=== PATIENT | female | born 1945 | race Caucasian/White ===

== ENCOUNTER 2021-03-05 13:51 | Inpatient (IN) | payer MEDICARE ==
[2021-03-05 14:28] LABS: #Basophils 0.1 10x3/uL (0.0-0.2); #Monocytes 0.6 10x3/uL (0.0-1.1); #Neutrophils 4.6 10x3/uL (1.5-8.4); %Basophils 0.8 % (0.0-2.0); %Eosinophils 0.5 % (0.0-6.0); %Lymphocytes 19.8 % (18.0-47.0); %Monocytes 9.5 % (0.0-10.0); %Neutrophils 69.1 % (40.0-75.0); Hemoglobin 12.1 g/dL (12.0-15.5); Mean Corpuscular HGB CONC 33.2 g/dL (32.0-36.0); Mean Corpuscular Volume 90.3 fl (81.6-98.3); Mean Platelet Volume 10.7 fl (7.4-10.4); Platelet Count 303 10x3/uL (150-450); RBC Distribution Width 15.1 % (11.5-14.5); Red Blood Cell (RBC) Count 4.04 10x6/uL (3.90-5.03); White Blood Cell (WBC) Count 6.6 10x3/uL (3.5-10.5)
[2021-03-05 14:33] LABS: ALT (SGPT) 104 U/L (8-55); AST (SGOT) 64 U/L (5-34); Albumin 3.8 g/dL (3.4-4.8); Alkaline Phosphatase 126 U/L (40-110); Anion Gap 15 mmol/L (10-20); BUN (Urea Nitrogen) 18 mg/dL (9.8-20.1); Bilirubin, Total 0.5 mg/dL (0.2-1.2); Calc. Creatinine Clearance 0 mL/min (70-130); Calcium 8.8 mg/dL (7.8-10.44); Carbon Dioxide 26 mmol/L (23-31); Chloride 99 mmol/L (98-107); Globulin 2.5 g/dL (2.4-3.5); Glucose 129 mg/dL (83-110); Potassium 4.1 mmol/L (3.5-5.1); Protein, Total 6.3 g/dL (5.8-8.1); Sodium 136 mmol/L (136-145)
[2021-03-05 15:24] LABS: Bilirubin Neg (Negative); Blood, Urine 50 (Negative); Clarity Clear (Clear); Glucose, Urine (Dipstick) Normal (Negative); Ketone, Urine Negative (Negative); Leukocyte 100 (Negative); Nitrite Negative (Negative); Protein, Urine (Dipstick) 30 mg/dl (Neg-Trace); Specific Gravity, Urine 1.015 (1.002-1.036)
[2021-03-05] MEDS ORDERED: Diltiazem HCl 125 MG, Admixture Fee 1 EACH in Sodium Chloride 0.9% 100 ML IVPB SCH (15:30)
[2021-03-05 15:37] LABS: Bacteria/HPF 1+ HPF (None Seen); RBC/HPF 0-3 HPF (0-3); Squamous Epithelial 0-3 HPF (0-3)
[2021-03-05] MEDS ORDERED: cefTRIAXone\\ROCEPHIN 1 GM VIAL ONE (16:04)
[2021-03-05] MEDS ORDERED: Acetaminophen 650 MG Suppository PR PRN (16:09)
[2021-03-05] MEDS ORDERED: Metoprolol Tartrate 25 MG TAB PO SCH (16:15)
[2021-03-05 16:59] LABS: SARS-CoV-2 NAA Rapid Test Not Detected (NotDetected)
[2021-03-05 17:55] LABS: Magnesium 1.9 mg/dL (1.6-2.6)
[2021-03-05] MEDS ORDERED: Furosemide 20 MG/2 ML VIAL SLOW IVP SCH (20:15)
[2021-03-05] MEDS ORDERED: Magnesium 2 GM/50 ML 2 GM in Premix Bag 1 BAG IVPB SCH (20:15)
[2021-03-05] MEDS ORDERED: Metoprolol Tartrate 50 MG TAB PO SCH (21:00)
[2021-03-05] MEDS: Atorvastatin Calcium 40 MG TAB PO SCH ×2 (21:03→21:06)
[2021-03-05] MEDS: Apixaban 5 MG TAB PO SCH (21:03)
[2021-03-05 21:34] VITALS: BMI 22.4
[2021-03-06 05:00] LABS: #Basophils 0.1 10x3/uL (0.0-0.2); #Eosinphils 0.1 10x3/uL (0.0-0.5); #Monocytes 0.6 10x3/uL (0.0-1.1); #Neutrophils 3.5 10x3/uL (1.5-8.4); %Basophils 0.9 % (0.0-2.0); %Eosinophils 1.1 % (0.0-6.0); %Monocytes 11.7 % (0.0-10.0); %Neutrophils 63.1 % (40.0-75.0); Hemoglobin 10.7 g/dL (12.0-15.5); Mean Corpuscular HGB CONC 32.1 g/dL (32.0-36.0); Mean Corpuscular Volume 90.2 fl (81.6-98.3); Mean Platelet Volume 10.7 fl (7.4-10.4); Platelet Count 260 10x3/uL (150-450); RBC Distribution Width 14.9 % (11.5-14.5); Red Blood Cell (RBC) Count 3.69 10x6/uL (3.90-5.03); White Blood Cell (WBC) Count 5.5 10x3/uL (3.5-10.5)
[2021-03-06 05:09] LABS: ALT (SGPT) 81 U/L (8-55); AST (SGOT) 48 U/L (5-34); Albumin 3.2 g/dL (3.4-4.8); Alkaline Phosphatase 100 U/L (40-110); Bilirubin, Direct 0.2 mg/dL (0.1-0.3); Bilirubin, Total 0.6 mg/dL (0.2-1.2); Protein, Total 5.8 g/dL (5.8-8.1)
[2021-03-06 05:16] LABS: Anion Gap 13 mmol/L (10-20); BUN (Urea Nitrogen) 15 mg/dL (9.8-20.1); Calc. Creatinine Clearance 49 mL/min (70-130); Calcium 8.3 mg/dL (7.8-10.44); Carbon Dioxide 26 mmol/L (23-31); Chloride 104 mmol/L (98-107); Glucose 108 mg/dL (83-110); Potassium 3.3 mmol/L (3.5-5.1); Sodium 140 mmol/L (136-145)
[2021-03-06] MEDS: Furosemide 20 MG/2 ML VIAL SLOW IVP SCH ×2 (06:02→15:10)
[2021-03-06] MEDS ORDERED: hydrOXYzine 25 MG TAB PO PRN (07:41)
[2021-03-06] MEDS ORDERED: Ondansetron ODT 4 MG TAB PO PRN (07:41)
[2021-03-06] MEDS ORDERED: Spironolactone 25 MG TAB PO SCH ×2 (08:00→09:00)
[2021-03-06] MEDS ORDERED: Potassium Chloride 20 MEQ TAB PO SCH ×3 (08:15→19:30)
[2021-03-06] MEDS: Amiodarone 200 MG TAB PO SCH (08:37)
[2021-03-06] MEDS: Apixaban 5 MG TAB PO SCH ×2 (08:37→21:06)
[2021-03-06] MEDS ORDERED: Amiodarone 200 MG TAB PO SCH (09:00)
[2021-03-06] MEDS ORDERED: Carvedilol 3.125 MG TAB PO SCH (09:00)
[2021-03-06 14:51] LABS: Magnesium 2.3 mg/dL (1.6-2.6)
[2021-03-06] MEDS: cefTRIAXone\\ROCEPHIN 1 GM in Sodium Chloride 0.9% 100 ML IVPB SCH (16:57)
[2021-03-06] MEDS: Acetaminophen 325 MG TAB PO PRN (18:54)
[2021-03-06] MEDS ORDERED: Furosemide 20 MG/2 ML VIAL SLOW IVP SCH (19:30)
[2021-03-06] MEDS: Atorvastatin Calcium 40 MG TAB PO SCH (21:06)
[2021-03-06] MEDS: Levothyroxine Sodium 50 MCG TAB PO SCH (21:06)
[2021-03-06] MEDS: Mirtazapine 15 MG TAB PO SCH (21:06)
[2021-03-06 21:09] LABS: Troponin I 0.022 ng/mL (< 0.028)
[2021-03-06 21:19] LABS: Anion Gap 18 mmol/L (10-20); BUN (Urea Nitrogen) 22 mg/dL (9.8-20.1); Calc. Creatinine Clearance 32 mL/min (70-130); Calcium 8.5 mg/dL (7.8-10.44); Carbon Dioxide 20 mmol/L (23-31); Chloride 102 mmol/L (98-107); Glucose 147 mg/dL (83-110); Magnesium 2.3 mg/dL (1.6-2.6); Potassium 5.9 mmol/L (3.5-5.1); Sodium 134 mmol/L (136-145)
[2021-03-06] MEDS ORDERED: Insulin Regular 300 UNITS/3 ML VIAL IVP SCH (21:45)
[2021-03-06] MEDS ORDERED: Calcium Gluc 4.6 MEQ/10 ML (100 MG/ML) SLOW IVP SCH (21:45)
[2021-03-06] MEDS ORDERED: Dextrose 50% Abboject 50 ML SYRINGE SLOW IVP SCH (21:45)
[2021-03-07 04:41] LABS: #Basophils 0.1 10x3/uL (0.0-0.2); #Eosinphils 0.1 10x3/uL (0.0-0.5); #Monocytes 0.8 10x3/uL (0.0-1.1); #Neutrophils 4.5 10x3/uL (1.5-8.4); %Eosinophils 0.7 % (0.0-6.0); %Lymphocytes 20.3 % (18.0-47.0); %Monocytes 11.4 % (0.0-10.0); %Neutrophils 66.2 % (40.0-75.0); Hemoglobin 10.7 g/dL (12.0-15.5); Mean Corpuscular HGB CONC 32.5 g/dL (32.0-36.0); Mean Corpuscular Hemoglobin 29.1 pg (27.0-33.0); Mean Corpuscular Volume 89.4 fl (81.6-98.3); Mean Platelet Volume 10.6 fl (7.4-10.4); Platelet Count 266 10x3/uL (150-450); RBC Distribution Width 14.8 % (11.5-14.5); Red Blood Cell (RBC) Count 3.68 10x6/uL (3.90-5.03); White Blood Cell (WBC) Count 6.8 10x3/uL (3.5-10.5)
[2021-03-07 04:57] LABS: Anion Gap 14 mmol/L (10-20); BUN (Urea Nitrogen) 21 mg/dL (9.8-20.1); Calc. Creatinine Clearance 38 mL/min (70-130); Calcium 8.5 mg/dL (7.8-10.44); Carbon Dioxide 24 mmol/L (23-31); Chloride 104 mmol/L (98-107); Glucose 93 mg/dL (83-110); Potassium 4.2 mmol/L (3.5-5.1); Sodium 138 mmol/L (136-145)
[2021-03-07 04:58] LABS: Troponin I 0.011 ng/mL (< 0.028)
[2021-03-07] MEDS ORDERED: Metoprolol Tartrate 25 MG TAB PO SCH (09:00)
[2021-03-07] MEDS: Apixaban 5 MG TAB PO SCH ×2 (10:35→21:44)
[2021-03-07] MEDS: Amiodarone 200 MG TAB PO SCH (10:35)
[2021-03-07] MEDS: cefTRIAXone\\ROCEPHIN 1 GM in Sodium Chloride 0.9% 100 ML IVPB SCH (15:16)
[2021-03-07] MEDS: Acetaminophen 325 MG TAB PO PRN (15:42)
[2021-03-07] MEDS ORDERED: Furosemide 20 MG TAB PO SCH (17:35)
[2021-03-07] MEDS: Mirtazapine 15 MG TAB PO SCH (21:44)
[2021-03-07] MEDS: Atorvastatin Calcium 40 MG TAB PO SCH (21:44)
[2021-03-07] MEDS: Levothyroxine Sodium 50 MCG TAB PO SCH (21:44)
[2021-03-08 05:05] LABS: #Basophils 0.1 10x3/uL (0.0-0.2); #Eosinphils 0.1 10x3/uL (0.0-0.5); #Monocytes 0.7 10x3/uL (0.0-1.1); #Neutrophils 3.5 10x3/uL (1.5-8.4); %Basophils 1.4 % (0.0-2.0); %Eosinophils 1.9 % (0.0-6.0); %Lymphocytes 23.9 % (18.0-47.0); %Monocytes 11.2 % (0.0-10.0); %Neutrophils 61.3 % (40.0-75.0); Hemoglobin 11.5 g/dL (12.0-15.5); Mean Corpuscular HGB CONC 32.8 g/dL (32.0-36.0); Mean Corpuscular Hemoglobin 29.3 pg (27.0-33.0); Mean Corpuscular Volume 89.5 fl (81.6-98.3); Mean Platelet Volume 10.2 fl (7.4-10.4); Platelet Count 278 10x3/uL (150-450); RBC Distribution Width 14.9 % (11.5-14.5); Red Blood Cell (RBC) Count 3.92 10x6/uL (3.90-5.03); White Blood Cell (WBC) Count 5.8 10x3/uL (3.5-10.5)
[2021-03-08 05:15] LABS: Anion Gap 17 mmol/L (10-20); BUN (Urea Nitrogen) 20 mg/dL (9.8-20.1); Calc. Creatinine Clearance 34 mL/min (70-130); Calcium 8.7 mg/dL (7.8-10.44); Carbon Dioxide 25 mmol/L (23-31); Chloride 102 mmol/L (98-107); Glucose 84 mg/dL (83-110); Potassium 3.7 mmol/L (3.5-5.1); Sodium 140 mmol/L (136-145)
[2021-03-08] MEDS ORDERED: Carvedilol 3.125 MG TAB PO SCH (08:00)
[2021-03-08] MEDS ORDERED: Potassium Chloride 10 MEQ TAB PO SCH (08:00)
[2021-03-08] MEDS ORDERED: Lisinopril 5 MG TAB PO SCH (09:00)
[2021-03-08] MEDS: Apixaban 5 MG TAB PO SCH (12:06)
[2021-03-08] MEDS: Amiodarone 200 MG TAB PO SCH (12:12)
[2021-03-08 21:00] VITALS: BP 116/58; TEMP 97.8
== END 2021-03-08 16:26 | DRG 291 ==
LOC: CSHERS 13:51 → CSHTELE 20:08
PROVIDERS: ADMIT Internal Medicine; ATTEND Internal Medicine
DX: I11.0 Hypertensive heart disease with heart failure (principal); I50.43 Acute on chronic combined systolic (congestive) and diastolic (congestive) heart failure; N30.00 Acute cystitis without hematuria; N17.9 Acute kidney failure, unspecified; I48.0 Paroxysmal atrial fibrillation; E78.5 Hyperlipidemia, unspecified; F03.90 Unspecified dementia, unspecified severity, without behavioral disturbance, psychotic disturbance, mood disturbance, and anxiety; E87.5 Hyperkalemia; R74.01 Elevation of levels of liver transaminase levels; Z20.822 Contact with and (suspected) exposure to COVID-19; I25.10 Atherosclerotic heart disease of native coronary artery without angina pectoris; Z95.1 Presence of aortocoronary bypass graft; Z85.3 Personal history of malignant neoplasm of breast; Z88.1 Allergy status to other antibiotic agents; Z88.8 Allergy status to other drugs, medicaments and biological substances; Z91.041 Radiographic dye allergy status; Z88.2 Allergy status to sulfonamides; Z79.01 Long term (current) use of anticoagulants; Z79.899 Other long term (current) drug therapy; Z90.711 Acquired absence of uterus with remaining cervical stump; Z90.89 Acquired absence of other organs; Z90.11 Acquired absence of right breast and nipple; Z90.49 Acquired absence of other specified parts of digestive tract; I25.2 Old myocardial infarction; Z86.73 Personal history of transient ischemic attack (TIA), and cerebral infarction without residual deficits
CPT/HCPCS: 36415; 36416; 71045; 76770; 80048; 80053; 80076; 81003; 81015; 83605; 83735; 83880; 84443; 84484; 85025; 87086; 93005; 93010; 93306; 94760; 96365; 96366; 96376; J0610; J0696; J1815; J1940; J3475; J3490; U0002

== ENCOUNTER 2021-05-11 07:30 | Inpatient (IN) | payer MEDICARE, MEDICAID ==
[2021-05-11] MEDS ORDERED: Diltiazem 125 MG/25 ML ONE (07:58)
[2021-05-11 08:13] LABS: #Basophils 0.1 10x3/uL (0.0-0.2); #Eosinphils 0.1 10x3/uL (0.0-0.5); #Monocytes 0.7 10x3/uL (0.0-1.1); #Neutrophils 3.7 10x3/uL (1.5-8.4); %Basophils 1.2 % (0.0-2.0); %Eosinophils 2.2 % (0.0-6.0); %Lymphocytes 22.2 % (18.0-47.0); %Monocytes 11.7 % (0.0-10.0); %Neutrophils 62.5 % (40.0-75.0); Hemoglobin 12.1 g/dL (12.0-15.5); Mean Corpuscular HGB CONC 33.3 g/dL (32.0-36.0); Mean Corpuscular Hemoglobin 28.8 pg (27.0-33.0); Mean Corpuscular Volume 86.4 fl (81.6-98.3); Mean Platelet Volume 10.8 fl (7.4-10.4); Platelet Count 254 10x3/uL (150-450); RBC Distribution Width 15.8 % (11.5-14.5); White Blood Cell (WBC) Count 5.9 10x3/uL (3.5-10.5)
[2021-05-11 08:18] LABS: INR-International Normal Ratio 1.1; PTT 28.5 sec (22.0-33.0); Prothrombin Time 11.6 sec (9.5-12.1)
[2021-05-11 08:23] LABS: ALT (SGPT) 14 U/L (8-55); AST (SGOT) 20 U/L (5-34); Albumin 3.8 g/dL (3.4-4.8); Alkaline Phosphatase 100 U/L (40-110); Anion Gap 15 mmol/L (10-20); BUN (Urea Nitrogen) 21 mg/dL (9.8-20.1); Bilirubin, Total 0.7 mg/dL (0.2-1.2); Calc. Creatinine Clearance 0 mL/min (70-130); Calcium 9.1 mg/dL (7.8-10.44); Carbon Dioxide 26 mmol/L (23-31); Chloride 104 mmol/L (98-107); Globulin 2.6 g/dL (2.4-3.5); Glucose 115 mg/dL (83-110); Potassium 4.1 mmol/L (3.5-5.1); Protein, Total 6.4 g/dL (5.8-8.1); Sodium 141 mmol/L (136-145)
[2021-05-11 11:18] LABS: Troponin I 0.014 ng/mL (< 0.028)
[2021-05-11] MEDS ORDERED: Ondansetron ODT 4 MG TAB PO PRN (12:53)
[2021-05-11] MEDS ORDERED: Senokot S 8.6-50 MG TAB PO PRN (12:53)
[2021-05-11] MEDS ORDERED: Ondansetron PF 4 MG/2 ML Vial IVP PRN (12:53)
[2021-05-11] MEDS ORDERED: Acetaminophen 325 MG TAB PO PRN (12:53)
[2021-05-11 14:38] LABS: Troponin I 0.015 ng/mL (< 0.028)
[2021-05-11] MEDS ORDERED: Diltiazem 125 MG in Sodium Chloride 0.9% 100 ML IVPB SCH (17:45)
[2021-05-11] MEDS ORDERED: Famotidine 20 MG TAB PO SCH (21:00)
[2021-05-11] MEDS: Mirtazapine 15 MG TAB PO SCH (21:33)
[2021-05-11] MEDS: Apixaban 5 MG TAB PO SCH (21:33)
[2021-05-11 22:32] LABS: SARS-CoV-2 PCR by NAA Not Detected (NotDetected)
[2021-05-11] MEDS ORDERED: Amiodarone 200 MG TAB PO SCH (23:45)
[2021-05-11] MEDS ORDERED: Carvedilol 3.125 MG TAB PO SCH (23:45)
[2021-05-12 05:08] LABS: #Basophils 0.1 10x3/uL (0.0-0.2); #Eosinphils 0.1 10x3/uL (0.0-0.5); #Monocytes 0.6 10x3/uL (0.0-1.1); %Basophils 1.4 % (0.0-2.0); %Eosinophils 2.5 % (0.0-6.0); %Monocytes 11.9 % (0.0-10.0); Hemoglobin 11.2 g/dL (12.0-15.5); Mean Corpuscular HGB CONC 32.9 g/dL (32.0-36.0); Mean Corpuscular Hemoglobin 28.5 pg (27.0-33.0); Mean Corpuscular Volume 86.5 fl (81.6-98.3); Mean Platelet Volume 11.5 fl (7.4-10.4); Platelet Count 201 10x3/uL (150-450); RBC Distribution Width 15.7 % (11.5-14.5); Red Blood Cell (RBC) Count 3.93 10x6/uL (3.90-5.03); White Blood Cell (WBC) Count 4.9 10x3/uL (3.5-10.5)
[2021-05-12 05:12] LABS: #Neutrophils 2.9 10x3/uL (1.5-8.4); %Neutrophils 60.2 % (40.0-75.0)
[2021-05-12 05:26] LABS: Anion Gap 14 mmol/L (10-20); BUN (Urea Nitrogen) 17 mg/dL (9.8-20.1); Calc. Creatinine Clearance 61 mL/min (70-130); Calcium 8.5 mg/dL (7.8-10.44); Carbon Dioxide 23 mmol/L (23-31); Chloride 105 mmol/L (98-107); Glucose 96 mg/dL (83-110); Potassium 3.6 mmol/L (3.5-5.1); Sodium 138 mmol/L (136-145)
[2021-05-12] MEDS: Levothyroxine Sodium 50 MCG TAB PO SCH (06:23)
[2021-05-12] MEDS ORDERED: Diltiazem 125 MG in Sodium Chloride 0.9% 100 ML IVPB SCH (08:45)
[2021-05-12] MEDS ORDERED: Carvedilol 3.125 MG TAB PO SCH (09:00)
[2021-05-12] MEDS ORDERED: Amiodarone 200 MG TAB PO SCH (09:00)
[2021-05-12] MEDS ORDERED: Potassium Chloride 20 MEQ TAB PO SCH (09:00)
[2021-05-12] MEDS: Spironolactone 25 MG TAB PO SCH (09:40)
[2021-05-12] MEDS: Carvedilol 6.25 MG TAB PO SCH (09:40)
[2021-05-12] MEDS: Apixaban 5 MG TAB PO SCH ×2 (09:41→21:20)
[2021-05-12] MEDS: Amiodarone 200 MG TAB PO SCH (09:41)
[2021-05-12] MEDS: Famotidine 20 MG TAB PO SCH (09:41)
[2021-05-12 09:55] LABS: Free T4 (Free Thyroxine) 1.41 ng/dL (0.70-1.48); Thyroid Stimulating Hormone 0.4308 uIU/mL (0.35-4.94)
[2021-05-12 11:45] LABS: Bilirubin Neg (Negative); Blood, Urine 25 (Negative); Clarity Slightly Cloudy (Clear); Glucose, Urine (Dipstick) Normal (Negative); Ketone, Urine 5 mg/dL (Negative); Leukocyte 100 (Negative); Nitrite Negative (Negative); Protein, Urine (Dipstick) 15 mg/dl (Neg-Trace)
[2021-05-12 11:54] LABS: Urine Culture Reflex No No
[2021-05-12 12:11] LABS: Bacteria/HPF Rare-Few HPF (None Seen); RBC/HPF 0-3 HPF (0-3); Squamous Epithelial 0-3 HPF (0-3)
[2021-05-12] MEDS ORDERED: FLU VACC QS2021-22(65YR UP)/PF 240 MCG/0.7 ML SYRINGE IM ONE (14:15)
[2021-05-12] MEDS: cefTRIAXone\\ROCEPHIN 1 GM in Sodium Chloride 0.9% 100 ML IVPB SCH (16:10)
[2021-05-12] MEDS: Mirtazapine 15 MG TAB PO SCH (21:20)
[2021-05-12] MEDS ORDERED: Metoprolol Tartrate 5 MG/5 ML VIAL IVP PRN (21:26)
[2021-05-13 05:03] LABS: #Basophils 0.1 10x3/uL (0.0-0.2); #Monocytes 0.7 10x3/uL (0.0-1.1); #Neutrophils 4.2 10x3/uL (1.5-8.4); %Basophils 1.2 % (0.0-2.0); %Eosinophils 0.4 % (0.0-6.0); %Lymphocytes 23.5 % (18.0-47.0); %Monocytes 11.1 % (0.0-10.0); %Neutrophils 63.4 % (40.0-75.0); Hemoglobin 11.7 g/dL (12.0-15.5); Mean Corpuscular HGB CONC 32.5 g/dL (32.0-36.0); Mean Corpuscular Hemoglobin 28.7 pg (27.0-33.0); Mean Corpuscular Volume 88.5 fl (81.6-98.3); Mean Platelet Volume 11.5 fl (7.4-10.4); Platelet Count 229 10x3/uL (150-450); RBC Distribution Width 15.9 % (11.5-14.5); Red Blood Cell (RBC) Count 4.07 10x6/uL (3.90-5.03); White Blood Cell (WBC) Count 6.7 10x3/uL (3.5-10.5)
[2021-05-13 05:37] LABS: ALT (SGPT) 44 U/L (8-55); AST (SGOT) 53 U/L (5-34); Albumin 3.4 g/dL (3.4-4.8); Alkaline Phosphatase 104 U/L (40-110); Anion Gap 19 mmol/L (10-20); BUN (Urea Nitrogen) 22 mg/dL (9.8-20.1); Bilirubin, Total 0.9 mg/dL (0.2-1.2); Calc. Creatinine Clearance 54 mL/min (70-130); Carbon Dioxide 19 mmol/L (23-31); Chloride 105 mmol/L (98-107); Globulin 2.8 g/dL (2.4-3.5); Glucose 101 mg/dL (83-110); Phosphorus 4.6 mg/dL (2.3-4.7); Potassium 4.6 mmol/L (3.5-5.1); Protein, Total 6.2 g/dL (5.8-8.1); Sodium 138 mmol/L (136-145)
[2021-05-13] MEDS ORDERED: Lorazepam 0.5 MG TAB PO SCH (06:15)
[2021-05-13] MEDS: Levothyroxine Sodium 50 MCG TAB PO SCH (06:42)
[2021-05-13] MEDS: Famotidine 20 MG TAB PO SCH (09:49)
[2021-05-13] MEDS: Carvedilol 6.25 MG TAB PO SCH (09:49)
[2021-05-13] MEDS: Amiodarone 200 MG TAB PO SCH (09:49)
[2021-05-13] MEDS: Spironolactone 25 MG TAB PO SCH (09:49)
[2021-05-13] MEDS: Apixaban 5 MG TAB PO SCH ×2 (09:49→20:18)
[2021-05-13] MEDS: cefTRIAXone\\ROCEPHIN 1 GM in Sodium Chloride 0.9% 100 ML IVPB SCH (18:09)
[2021-05-13] MEDS: Mirtazapine 15 MG TAB PO SCH (20:18)
[2021-05-13] MEDS: Atorvastatin Calcium 20 MG TAB PO SCH (20:18)
[2021-05-14] MEDS: Levothyroxine Sodium 50 MCG TAB PO SCH (06:40)
[2021-05-14 08:58] LABS: Anion Gap 15 mmol/L (10-20); BUN (Urea Nitrogen) 27 mg/dL (9.8-20.1); Calc. Creatinine Clearance 49 mL/min (70-130); Calcium 8.7 mg/dL (7.8-10.44); Carbon Dioxide 21 mmol/L (23-31); Chloride 105 mmol/L (98-107); Glucose 108 mg/dL (83-110); Potassium 4.2 mmol/L (3.5-5.1); Sodium 137 mmol/L (136-145)
[2021-05-14] MEDS: Famotidine 20 MG TAB PO SCH (09:30)
[2021-05-14] MEDS: Amiodarone 200 MG TAB PO SCH (09:31)
[2021-05-14] MEDS: Apixaban 5 MG TAB PO SCH ×2 (09:31→20:31)
[2021-05-14] MEDS: Spironolactone 25 MG TAB PO SCH (09:31)
[2021-05-14] MEDS ORDERED: Carvedilol 6.25 MG TAB PO SCH (10:30)
[2021-05-14] MEDS: cefTRIAXone\\ROCEPHIN 1 GM in Sodium Chloride 0.9% 100 ML IVPB SCH (14:59)
[2021-05-14] MEDS: Carvedilol 12.5 MG TAB PO SCH (17:36)
[2021-05-14] MEDS: Atorvastatin Calcium 20 MG TAB PO SCH (20:31)
[2021-05-14] MEDS: Mirtazapine 15 MG TAB PO SCH (20:31)
[2021-05-15] MEDS: Carvedilol 12.5 MG TAB PO SCH ×2 (08:42→16:57)
[2021-05-15] MEDS: Apixaban 5 MG TAB PO SCH ×2 (08:42→21:34)
[2021-05-15] MEDS: Amiodarone 200 MG TAB PO SCH (08:42)
[2021-05-15] MEDS: Spironolactone 25 MG TAB PO SCH (08:42)
[2021-05-15] MEDS: Famotidine 20 MG TAB PO SCH (08:42)
[2021-05-15] MEDS: Levothyroxine Sodium 50 MCG TAB PO SCH (08:42)
[2021-05-15 09:02] LABS: Anion Gap 16 mmol/L (10-20); BUN (Urea Nitrogen) 28 mg/dL (9.8-20.1); Calc. Creatinine Clearance 47 mL/min (70-130); Calcium 8.8 mg/dL (7.8-10.44); Carbon Dioxide 20 mmol/L (23-31); Chloride 104 mmol/L (98-107); Glucose 120 mg/dL (83-110); Potassium 4.3 mmol/L (3.5-5.1); Sodium 136 mmol/L (136-145)
[2021-05-15 10:17] VITALS: BMI 25.7
[2021-05-15] MEDS: cefTRIAXone\\ROCEPHIN 1 GM in Sodium Chloride 0.9% 100 ML IVPB SCH (16:04)
[2021-05-15] MEDS: Atorvastatin Calcium 20 MG TAB PO SCH (21:34)
[2021-05-15] MEDS: Mirtazapine 15 MG TAB PO SCH (21:34)
[2021-05-15] MEDS ORDERED: Lorazepam 0.5 MG TAB PO SCH (23:00)
[2021-05-16] MEDS: Levothyroxine Sodium 50 MCG TAB PO SCH (06:23)
[2021-05-16] MEDS: Carvedilol 12.5 MG TAB PO SCH ×3 (11:37→18:53)
[2021-05-16] MEDS: Amiodarone 200 MG TAB PO SCH (11:37)
[2021-05-16] MEDS: Apixaban 5 MG TAB PO SCH ×2 (11:37→21:30)
[2021-05-16] MEDS: Famotidine 20 MG TAB PO SCH ×2 (11:37→11:56)
[2021-05-16] MEDS: Spironolactone 25 MG TAB PO SCH (11:37)
[2021-05-16] MEDS: cefTRIAXone\\ROCEPHIN 1 GM in Sodium Chloride 0.9% 100 ML IVPB SCH (17:00)
[2021-05-16] MEDS ORDERED: Lorazepam 0.5 MG TAB PO SCH (20:45)
[2021-05-16] MEDS: Mirtazapine 15 MG TAB PO SCH (21:30)
[2021-05-16] MEDS: Atorvastatin Calcium 20 MG TAB PO SCH (21:30)
[2021-05-17 05:36] LABS: Hemoglobin 11.4 g/dL (12.0-15.5); Mean Corpuscular HGB CONC 33.4 g/dL (32.0-36.0); Mean Corpuscular Hemoglobin 28.6 pg (27.0-33.0); Mean Corpuscular Volume 85.5 fl (81.6-98.3); Mean Platelet Volume 11.7 fl (7.4-10.4); Platelet Count 214 10x3/uL (150-450); RBC Distribution Width 16.4 % (11.5-14.5); Red Blood Cell (RBC) Count 3.99 10x6/uL (3.90-5.03); White Blood Cell (WBC) Count 6.1 10x3/uL (3.5-10.5)
[2021-05-17 05:44] LABS: Anion Gap 17 mmol/L (10-20); BUN (Urea Nitrogen) 33 mg/dL (9.8-20.1); Calc. Creatinine Clearance 48 mL/min (70-130); Calcium 8.6 mg/dL (7.8-10.44); Carbon Dioxide 19 mmol/L (23-31); Chloride 103 mmol/L (98-107); Glucose 81 mg/dL (83-110); Potassium 3.8 mmol/L (3.5-5.1); Sodium 135 mmol/L (136-145)
[2021-05-17] MEDS: Levothyroxine Sodium 50 MCG TAB PO SCH (05:49)
[2021-05-17 10:16] VITALS: BP 128/73; TEMP 95.3
[2021-05-17] MEDS: Famotidine 20 MG TAB PO SCH (10:17)
[2021-05-17] MEDS: Spironolactone 25 MG TAB PO SCH (10:17)
[2021-05-17] MEDS: Amiodarone 200 MG TAB PO SCH (10:25)
[2021-05-17] MEDS: Apixaban 5 MG TAB PO SCH (10:25)
[2021-05-17] MEDS: Carvedilol 12.5 MG TAB PO SCH (10:25)
== END 2021-05-17 11:57 | DRG 308 ==
LOC: CSHERS 07:30 → CSHTELE 12:48 → OBSVTOIN 05-13 09:30
PROVIDERS: ADMIT Emergency Medicine; ATTEND Internal Medicine
DX: I48.0 Paroxysmal atrial fibrillation (principal); I50.43 Acute on chronic combined systolic (congestive) and diastolic (congestive) heart failure; N39.0 Urinary tract infection, site not specified; E78.5 Hyperlipidemia, unspecified; I25.10 Atherosclerotic heart disease of native coronary artery without angina pectoris; F03.90 Unspecified dementia, unspecified severity, without behavioral disturbance, psychotic disturbance, mood disturbance, and anxiety; R07.89 Other chest pain; E87.6 Hypokalemia; B96.20 Unspecified Escherichia coli [E. coli] as the cause of diseases classified elsewhere; Z66 Do not resuscitate; Z20.822 Contact with and (suspected) exposure to COVID-19; I11.0 Hypertensive heart disease with heart failure; Z88.2 Allergy status to sulfonamides; Z88.5 Allergy status to narcotic agent; Z91.041 Radiographic dye allergy status; Z88.1 Allergy status to other antibiotic agents; Z91.048 Other nonmedicinal substance allergy status; Z79.01 Long term (current) use of anticoagulants; Z95.1 Presence of aortocoronary bypass graft; Z90.710 Acquired absence of both cervix and uterus; Z90.49 Acquired absence of other specified parts of digestive tract; Z86.73 Personal history of transient ischemic attack (TIA), and cerebral infarction without residual deficits; Z98.890 Other specified postprocedural states; Z85.3 Personal history of malignant neoplasm of breast; Z79.899 Other long term (current) drug therapy
CPT/HCPCS: 36415; 71045; 80048; 80053; 81001; 83735; 83880; 84100; 84439; 84443; 84484; 85025; 85027; 85610; 85730; 87077; 87086; 87186; 93005; 93010; 94760; 96374; 96375; 96376; G0378; J0696; J3490; U0003; U0005

== ENCOUNTER 2021-05-28 13:04 | Inpatient (IN) | payer MEDICARE, MEDICAID ==
[2021-05-28 13:58] LABS: #Basophils 0.1 10x3/uL (0.0-0.2); #Eosinphils 0.1 10x3/uL (0.0-0.5); #Monocytes 0.6 10x3/uL (0.0-1.1); #Neutrophils 5.3 10x3/uL (1.5-8.4); %Basophils 1.2 % (0.0-2.0); %Eosinophils 1.2 % (0.0-6.0); %Lymphocytes 23.2 % (18.0-47.0); %Monocytes 7.7 % (0.0-10.0); %Neutrophils 66.5 % (40.0-75.0); Hemoglobin 12.5 g/dL (12.0-15.5); Mean Corpuscular HGB CONC 32.6 g/dL (32.0-36.0); Mean Corpuscular Volume 86.1 fl (81.6-98.3); Mean Platelet Volume 10.5 fl (7.4-10.4); Platelet Count 299 10x3/uL (150-450); RBC Distribution Width 16.4 % (11.5-14.5); Red Blood Cell (RBC) Count 4.46 10x6/uL (3.90-5.03)
[2021-05-28] MEDS ORDERED: Diltiazem 125 MG/25 ML ONE (14:04)
[2021-05-28 14:12] LABS: Anion Gap 19 mmol/L (10-20); BUN (Urea Nitrogen) 17 mg/dL (9.8-20.1); Calc. Creatinine Clearance 0 mL/min (70-130); Calcium 9.2 mg/dL (7.8-10.44); Carbon Dioxide 23 mmol/L (23-31); Chloride 102 mmol/L (98-107); Glucose 155 mg/dL (83-110); Potassium 4.1 mmol/L (3.5-5.1); Sodium 140 mmol/L (136-145)
[2021-05-28 15:19] LABS: SARS-CoV-2 NAA Rapid Test Not Detected (NotDetected)
[2021-05-28 15:34] LABS: ALT (SGPT) 67 U/L (8-55); AST (SGOT) 57 U/L (5-34); Albumin 3.8 g/dL (3.4-4.8); Alkaline Phosphatase 152 U/L (40-110); Bilirubin, Direct 0.5 mg/dL (0.1-0.3); Protein, Total 6.5 g/dL (5.8-8.1)
[2021-05-28] MEDS ORDERED: guaiFENesin/Codeine Phosphate 100 mg/10 mg 5 ml UD Cup PO PRN (19:53)
[2021-05-28] MEDS ORDERED: Ondansetron ODT 4 MG TAB PO PRN (19:53)
[2021-05-28] MEDS ORDERED: Acetaminophen 325 MG TAB PO PRN (19:53)
[2021-05-28] MEDS ORDERED: Senokot S 8.6-50 MG TAB PO PRN (19:53)
[2021-05-28] MEDS ORDERED: Acetaminophen 650 MG Suppository PR PRN (19:53)
[2021-05-28] MEDS ORDERED: Diltiazem 125 MG in Sodium Chloride 0.9% 100 ML IVPB SCH (19:53)
[2021-05-28] MEDS ORDERED: Ondansetron PF 4 MG/2 ML Vial IVP PRN (19:53)
[2021-05-28] MEDS ORDERED: Carvedilol 12.5 MG TAB PO SCH (20:15)
[2021-05-28] MEDS: Mirtazapine 15 MG TAB PO SCH ×2 (20:47→20:56)
[2021-05-28] MEDS: Levothyroxine Sodium 50 MCG TAB PO SCH (20:47)
[2021-05-28] MEDS: Atorvastatin Calcium 20 MG TAB PO SCH (20:47)
[2021-05-28] MEDS: Apixaban 5 MG TAB PO SCH (20:47)
[2021-05-28] MEDS ORDERED: Famotidine 20 MG TAB PO SCH (21:00)
[2021-05-29 04:02] LABS: Anion Gap 17 mmol/L (10-20); BUN (Urea Nitrogen) 20 mg/dL (9.8-20.1); Calc. Creatinine Clearance 54 mL/min (70-130); Calcium 8.3 mg/dL (7.8-10.44); Carbon Dioxide 21 mmol/L (23-31); Chloride 106 mmol/L (98-107); Glucose 128 mg/dL (83-110); Potassium 3.9 mmol/L (3.5-5.1); Sodium 140 mmol/L (136-145)
[2021-05-29 04:48] LABS: #Basophils 0.1 10x3/uL (0.0-0.2); #Monocytes 0.6 10x3/uL (0.0-1.1); #Neutrophils 4.5 10x3/uL (1.5-8.4); %Basophils 1.3 % (0.0-2.0); %Eosinophils 0.6 % (0.0-6.0); %Lymphocytes 17.3 % (18.0-47.0); %Monocytes 9.4 % (0.0-10.0); %Neutrophils 70.9 % (40.0-75.0); Hemoglobin 11.1 g/dL (12.0-15.5); Mean Corpuscular HGB CONC 33.5 g/dL (32.0-36.0); Mean Corpuscular Hemoglobin 28.4 pg (27.0-33.0); Mean Corpuscular Volume 84.7 fl (81.6-98.3); Platelet Count 199 10x3/uL (150-450); RBC Distribution Width 16.3 % (11.5-14.5); Red Blood Cell (RBC) Count 3.91 10x6/uL (3.90-5.03); White Blood Cell (WBC) Count 6.3 10x3/uL (3.5-10.5)
[2021-05-29] MEDS: Furosemide 40 MG/4 ML VIAL SLOW IVP SCH ×2 (05:48→14:05)
[2021-05-29] MEDS ORDERED: Carvedilol 12.5 MG TAB PO SCH (08:00)
[2021-05-29] MEDS: Apixaban 5 MG TAB PO SCH ×2 (08:27→21:22)
[2021-05-29] MEDS: Spironolactone 25 MG TAB PO SCH (08:27)
[2021-05-29] MEDS: Amiodarone 200 MG TAB PO SCH (08:27)
[2021-05-29 10:08] LABS: Bilirubin Neg (Negative); Blood, Urine 10 (Negative); Clarity Clear (Clear); Glucose, Urine (Dipstick) Normal (Negative); Ketone, Urine Negative (Negative); Leukocyte 25 (Negative); Nitrite Negative (Negative); Protein, Urine (Dipstick) 15 mg/dl (Neg-Trace); Specific Gravity, Urine 1.005 (1.002-1.036); Urobilinogen Normal mg/dL (Less than 2)
[2021-05-29 10:41] LABS: Bacteria/HPF Rare-Few HPF (None Seen); RBC/HPF 0-3 HPF (0-3); Squamous Epithelial 0-3 HPF (0-3)
[2021-05-29] MEDS: Carvedilol 25 MG TAB PO SCH (16:17)
[2021-05-29] MEDS: Famotidine 20 MG TAB PO SCH (21:22)
[2021-05-29] MEDS: Levothyroxine Sodium 50 MCG TAB PO SCH (21:22)
[2021-05-29] MEDS: Atorvastatin Calcium 20 MG TAB PO SCH (21:22)
[2021-05-29] MEDS: Mirtazapine 15 MG TAB PO SCH (21:23)
[2021-05-30 05:46] VITALS: TEMP 97
[2021-05-30] MEDS: Furosemide 40 MG/4 ML VIAL SLOW IVP SCH ×2 (06:03→14:23)
[2021-05-30] MEDS: Spironolactone 25 MG TAB PO SCH (08:11)
[2021-05-30] MEDS: Carvedilol 25 MG TAB PO SCH ×2 (08:12→17:15)
[2021-05-30] MEDS: Apixaban 5 MG TAB PO SCH ×2 (08:12→20:47)
[2021-05-30] MEDS: Amiodarone 200 MG TAB PO SCH (08:12)
[2021-05-30] MEDS: Mirtazapine 15 MG TAB PO SCH (20:47)
[2021-05-30] MEDS: Atorvastatin Calcium 20 MG TAB PO SCH (20:47)
[2021-05-30] MEDS: Levothyroxine Sodium 50 MCG TAB PO SCH (20:47)
[2021-05-30] MEDS: Famotidine 20 MG TAB PO SCH (20:47)
[2021-05-31 06:07] LABS: Anion Gap 18 mmol/L (10-20); BUN (Urea Nitrogen) 20 mg/dL (9.8-20.1); Calc. Creatinine Clearance 48 mL/min (70-130); Calcium 8.4 mg/dL (7.8-10.44); Carbon Dioxide 28 mmol/L (23-31); Chloride 101 mmol/L (98-107); Glucose 83 mg/dL (83-110); Sodium 144 mmol/L (136-145)
[2021-05-31 06:08] LABS: Potassium 2.8 mmol/L (3.5-5.1)
[2021-05-31] MEDS: Furosemide 40 MG/4 ML VIAL SLOW IVP SCH (06:28)
[2021-05-31] MEDS: Potassium Chloride 20 MEQ in Premix Bag 1 BAG IVPB SCH ×3 (06:28→13:48)
[2021-05-31] MEDS ORDERED: Furosemide 20 MG TAB PO SCH (09:00)
[2021-05-31] MEDS: Carvedilol 25 MG TAB PO SCH ×2 (09:26→17:33)
[2021-05-31] MEDS: Amiodarone 200 MG TAB PO SCH (09:29)
[2021-05-31] MEDS: Spironolactone 25 MG TAB PO SCH (09:29)
[2021-05-31] MEDS: Apixaban 5 MG TAB PO SCH (09:30)
[2021-05-31 12:06] VITALS: BMI 21.2
[2021-05-31] MEDS ORDERED: Potassium Chloride 20 MEQ TAB PO SCH (13:45)
[2021-05-31 14:20] VITALS: BP 114/73
[2021-05-31 16:40] LABS: Potassium 4.5 mmol/L (3.5-5.1)
== END 2021-05-31 18:45 | DRG 291 ==
LOC: CSHERS 13:04 → CSHIMCU 17:37
PROVIDERS: ADMIT Emergency Medicine; ATTEND Internal Medicine
DX: I11.0 Hypertensive heart disease with heart failure (principal); J96.91 Respiratory failure, unspecified with hypoxia; I50.23 Acute on chronic systolic (congestive) heart failure; F03.91 Unspecified dementia, unspecified severity, with behavioral disturbance; F05 Delirium due to known physiological condition; E78.5 Hyperlipidemia, unspecified; I48.91 Unspecified atrial fibrillation; Z20.822 Contact with and (suspected) exposure to COVID-19; K21.9 Gastro-esophageal reflux disease without esophagitis; M81.0 Age-related osteoporosis without current pathological fracture; I25.10 Atherosclerotic heart disease of native coronary artery without angina pectoris; E87.6 Hypokalemia; Z95.1 Presence of aortocoronary bypass graft; Z86.73 Personal history of transient ischemic attack (TIA), and cerebral infarction without residual deficits; Z98.890 Other specified postprocedural states; Z85.3 Personal history of malignant neoplasm of breast; Z92.21 Personal history of antineoplastic chemotherapy; Z79.01 Long term (current) use of anticoagulants; Z88.8 Allergy status to other drugs, medicaments and biological substances; Z88.2 Allergy status to sulfonamides; Z88.1 Allergy status to other antibiotic agents; Z91.041 Radiographic dye allergy status; Z88.5 Allergy status to narcotic agent; Z90.11 Acquired absence of right breast and nipple; Z90.710 Acquired absence of both cervix and uterus; Z90.49 Acquired absence of other specified parts of digestive tract; I25.2 Old myocardial infarction
CPT/HCPCS: 36415; 71045; 80048; 80076; 81001; 83605; 83735; 83880; 84443; 84484; 85025; 93005; 94760; 96365; 96366; J1940; J2405; J3480; J3490; U0002

== ENCOUNTER 2021-06-03 02:51 | Emergency (ER) | payer MEDICARE, MEDICAID ==
[2021-06-03 03:44] LABS: #Eosinphils 0.1 10x3/uL (0.0-0.5); #Monocytes 0.4 10x3/uL (0.0-1.1); #Neutrophils 2.9 10x3/uL (1.5-8.4); %Basophils 0.8 % (0.0-2.0); %Eosinophils 2.5 % (0.0-6.0); %Lymphocytes 27.6 % (18.0-47.0); %Monocytes 8.2 % (0.0-10.0); %Neutrophils 60.7 % (40.0-75.0); Hemoglobin 11.1 g/dL (12.0-15.5); Mean Corpuscular HGB CONC 32.7 g/dL (32.0-36.0); Mean Corpuscular Hemoglobin 27.9 pg (27.0-33.0); Mean Corpuscular Volume 85.2 fl (81.6-98.3); Mean Platelet Volume 11.3 fl (7.4-10.4); Platelet Count 196 10x3/uL (150-450); RBC Distribution Width 16.2 % (11.5-14.5); Red Blood Cell (RBC) Count 3.98 10x6/uL (3.90-5.03); White Blood Cell (WBC) Count 4.7 10x3/uL (3.5-10.5)
[2021-06-03 04:16] LABS: ALT (SGPT) 67 U/L (8-55); AST (SGOT) 75 U/L (5-34); Albumin 3.4 g/dL (3.4-4.8); Alkaline Phosphatase 140 U/L (40-110); Anion Gap 17 mmol/L (10-20); BUN (Urea Nitrogen) 22 mg/dL (9.8-20.1); Bilirubin, Total 0.7 mg/dL (0.2-1.2); Calc. Creatinine Clearance 0 mL/min (70-130); Calcium 8.6 mg/dL (7.8-10.44); Carbon Dioxide 24 mmol/L (23-31); Chloride 103 mmol/L (98-107); Globulin 2.7 g/dL (2.4-3.5); Glucose 166 mg/dL (83-110); Potassium 3.1 mmol/L (3.5-5.1); Protein, Total 6.1 g/dL (5.8-8.1); Sodium 141 mmol/L (136-145)
[2021-06-03] MEDS ORDERED: Furosemide 40 MG TAB ONE (05:26)
[2021-06-03] MEDS ORDERED: Furosemide 40 MG TAB PO SCH (05:30)
[2021-06-03] MEDS ORDERED: Potassium Bicarbonate/Cit Ac 25 MEQ TAB PO SCH (05:30)
[2021-06-03] MEDS ORDERED: Acetaminophen 325 MG TAB ONE (05:36)
[2021-06-03] MEDS ORDERED: Potassium Bicarbonate/Cit Ac 25 MEQ TAB ONE (05:53)
== END 2021-06-03 09:08 | disposition home or self-care (01) ==
LOC: CSHERS 02:51
DX: R06.02 Shortness of breath (principal); I11.0 Hypertensive heart disease with heart failure; I50.9 Heart failure, unspecified; I25.2 Old myocardial infarction; D64.9 Anemia, unspecified; E78.5 Hyperlipidemia, unspecified; I25.10 Atherosclerotic heart disease of native coronary artery without angina pectoris; K21.9 Gastro-esophageal reflux disease without esophagitis; Z86.73 Personal history of transient ischemic attack (TIA), and cerebral infarction without residual deficits
CPT/HCPCS: 36415; 71045; 80053; 83880; 84484; 85025; 93005

== ENCOUNTER 2021-09-10 18:32 | Emergency (ER) | payer MEDICARE, MEDICAID ==
[2021-09-10 19:29] LABS: #Basophils 0.1 10x3/uL (0.0-0.2); #Eosinphils 0.1 10x3/uL (0.0-0.5); #Monocytes 0.6 10x3/uL (0.0-1.1); #Neutrophils 4.5 10x3/uL (1.5-8.4); %Basophils 1.2 % (0.0-2.0); %Eosinophils 0.9 % (0.0-6.0); %Lymphocytes 19.5 % (18.0-47.0); %Monocytes 9.7 % (0.0-10.0); %Neutrophils 68.4 % (40.0-75.0); Mean Corpuscular HGB CONC 31.5 g/dL (32.0-36.0); Mean Corpuscular Hemoglobin 26.4 pg (27.0-33.0); Mean Corpuscular Volume 83.9 fl (81.6-98.3); Mean Platelet Volume 10.5 fl (7.4-10.4); Platelet Count 265 10x3/uL (150-450); RBC Distribution Width 16.9 % (11.5-14.5); Red Blood Cell (RBC) Count 4.16 10x6/uL (3.90-5.03); White Blood Cell (WBC) Count 6.6 10x3/uL (3.5-10.5)
[2021-09-10 19:56] LABS: ALT (SGPT) 30 U/L (8-55); AST (SGOT) 31 U/L (5-34); Albumin 3.7 g/dL (3.4-4.8); Alkaline Phosphatase 134 U/L (40-110); Anion Gap 16 mmol/L (10-20); BUN (Urea Nitrogen) 14 mg/dL (9.8-20.1); Bilirubin, Total 0.8 mg/dL (0.2-1.2); Calc. Creatinine Clearance 0 mL/min (70-130); Calcium 8.9 mg/dL (7.8-10.44); Carbon Dioxide 23 mmol/L (23-31); Chloride 105 mmol/L (98-107); Estimated GFR 67; Glucose 152 mg/dL (83-110); Potassium 3.9 mmol/L (3.5-5.1); Protein, Total 6.7 g/dL (5.8-8.1); Sodium 140 mmol/L (136-145)
[2021-09-10 22:58] LABS: Bilirubin Neg (Negative); Blood, Urine 10 (Negative); Clarity Clear (Clear); Glucose, Urine (Dipstick) Normal (Negative); Ketone, Urine Negative (Negative); Leukocyte Negative (Negative); Nitrite Negative (Negative); Protein, Urine (Dipstick) 30 mg/dl (Neg-Trace); Urobilinogen Normal mg/dL (Less than 2); pH, Urine 6.5 (5.0-9.0)
[2021-09-10 23:05] LABS: Bacteria/HPF Rare-Few HPF (None Seen); RBC/HPF 0-3 HPF (0-3); Squamous Epithelial 0-3 HPF (0-3); WBC/HPF 0-3 HPF (0-3)
[2021-09-10 23:09] LABS: Amphetamine Not Detected (NotDetected); Barbiturates Screen Not Detected (NotDetected); Benzodiazepine Screen Not Detected (NotDetected); Cocaine Metabolite Screen Not Detected (NotDetected); Methadone Not Detected (NotDetected); Methamphetamine Not Detected (NotDetected); Opiate Screen Not Detected (NotDetected); Oxycodone Screen Not Detected (NotDetected); Phencyclidine (PCP) Not Detected (NotDetected); THC/Cannabinoid Screen Not Detected (NotDetected); Tricyclic Screen Not Detected (NotDetected)
== END 2021-09-11 00:11 ==
LOC: CSHERS 18:32
DX: F32.A Depression, unspecified (principal); I48.91 Unspecified atrial fibrillation; E03.9 Hypothyroidism, unspecified; I11.0 Hypertensive heart disease with heart failure; I50.9 Heart failure, unspecified; K21.9 Gastro-esophageal reflux disease without esophagitis; D64.9 Anemia, unspecified; I25.2 Old myocardial infarction; Z79.01 Long term (current) use of anticoagulants; Z79.899 Other long term (current) drug therapy
CPT/HCPCS: 51701; 80053; 80306; 81003; 81015; 85025; 93005